=== PATIENT | male | born 1985 | race African-American/Black ===

== ENCOUNTER 2020-12-17 01:28 | Emergency (ER) | payer BC, OTHER ==
[~2020-12-17] VITALS: Ht 182.9 cm; Wt 85.3 kg
--- NOTE | 2020-12-17 03:30 | NUR ---
Dr. Zhang at bedside for MSE.
[2020-12-17] MEDS ORDERED: CHLO25TA13 GT (03:43)
[2020-12-17 03:52] VITALS: BP 120/78
== END 2020-12-17 03:53 | disposition home or self-care (01) ==
LOC: ER 01:35
DX: K21.9 Gastro-esophageal reflux disease without esophagitis (principal); R19.7 Diarrhea, unspecified; R06.6 Hiccough; Z88.0 Allergy status to penicillin
CPT/HCPCS: A4663